=== PATIENT | female | born 1995 | race Caucasian/White ===

== ENCOUNTER 2019-12-29 17:50 | Emergency (ER) | payer BC ==
[~2019-12-29] VITALS: Ht 167.6 cm; Wt 59.9 kg
[2019-12-29] MEDS ORDERED: PROAIR HFA8.5 GM INH (17:58)
[2019-12-29] MEDS ORDERED: CEFDINIR300 MG PO (17:58)
[2019-12-29] MEDS ORDERED: MEDROLDOSEPACK PO (17:58)
[2019-12-29] MEDS ORDERED: DIFLUCAN50 MG PO (17:58)
[2019-12-29] MEDS ORDERED: DEPO-MEDRO20 MG/1 ML IM (17:59)
[2019-12-29 18:33] LABS: INFLUENZA A ANTIGEN Negative (Negative); INFLUENZA B ANTIGEN Negative (Negative)
[2019-12-29] MEDS ORDERED: PREDNISONE 10 M10 MG PO (19:48)
[2019-12-29] MEDS ORDERED: ZPAK PO (19:48)
[2019-12-29 19:54] VITALS: BP 102/71
== END 2019-12-29 19:56 | disposition home or self-care (01) ==
LOC: M.ERS 17:50
PROVIDERS: Nurse Practitioner Family
DX: J18.9 Pneumonia, unspecified organism (principal); Z20.828 Contact with and (suspected) exposure to other viral communicable diseases; F17.203 Nicotine dependence unspecified, with withdrawal

== ENCOUNTER → 2020-12-08 | Outpatient (CLI) | payer OTHER ==
[~2020-12-08] MED LIST: CEFDINIR300 MG PO; DEPO-MEDRO20 MG/1 ML IM; DIFLUCAN50 MG PO; MEDROLDOSEPACK PO; PREDNISONE 10 M10 MG PO; PROAIR HFA8.5 GM INH; ZPAK PO
== END ==
LOC: M.LAB 09:57
PROVIDERS: ATTEND Podiatrist Foot & Ankle Surgery
DX: Z01.812 Encounter for preprocedural laboratory examination (principal); Z20.822 Contact with and (suspected) exposure to COVID-19